=== PATIENT | female | born 1950 | race Caucasian/White ===

== ENCOUNTER 2022-01-08 16:47 | Inpatient (IN) | payer MEDICARE ==
[2022-01-08 17:27] LABS: #Basophils 0.1 10x3/uL (0.0-0.2); #Eosinphils 0.1 10x3/uL (0.0-0.5); #Monocytes 0.4 10x3/uL (0.0-1.1); #Neutrophils 3.9 10x3/uL (1.5-8.4); %Basophils 0.8 % (0.0-2.0); %Eosinophils 1.6 % (0.0-6.0); %Lymphocytes 29.4 % (18.0-47.0); %Monocytes 6.4 % (0.0-10.0); %Neutrophils 61.6 % (40.0-75.0); Hemoglobin 11.2 g/dL (12.0-15.5); Mean Corpuscular HGB CONC 34.5 g/dL (32.0-36.0); Mean Corpuscular Hemoglobin 31.7 pg (27.0-33.0); Mean Corpuscular Volume 92.1 fl (81.6-98.3); Mean Platelet Volume 10.5 fl (7.4-10.4); Platelet Count 229 10x3/uL (150-450); RBC Distribution Width 12.4 % (11.5-14.5); Red Blood Cell (RBC) Count 3.53 10x6/uL (3.90-5.03); White Blood Cell (WBC) Count 6.3 10x3/uL (3.5-10.5)
[2022-01-08 17:43] LABS: ALT (SGPT) 25 U/L (8-55); AST (SGOT) 25 U/L (5-34); Alkaline Phosphatase 73 U/L (40-110); Anion Gap 14 mmol/L (10-20); BUN (Urea Nitrogen) 16 mg/dL (9.8-20.1); Bilirubin, Total 0.7 mg/dL (0.2-1.2); Calc. Creatinine Clearance 0 mL/min (70-130); Calcium 9.3 mg/dL (7.8-10.44); Carbon Dioxide 25 mmol/L (23-31); Chloride 107 mmol/L (98-107); Estimated GFR 76; Globulin 2.1 g/dL (2.4-3.5); Glucose 92 mg/dL (80-115); Lipase 36 U/L (8-78); Potassium 4.4 mmol/L (3.5-5.1); Protein, Total 6.1 g/dL (5.8-8.1); Sodium 142 mmol/L (136-145)
[2022-01-08] MEDS ORDERED: Aspirin Chewable 81 MG TAB ONE (18:11)
[2022-01-08] MEDS ORDERED: Calcium Carbonate 500 MG ChewTAB PO PRN (21:50)
[2022-01-08] MEDS ORDERED: Zolpidem Tartrate 5 MG TAB PO PRN (21:50)
[2022-01-08] MEDS ORDERED: Ondansetron PF 4 MG/2 ML Vial IVP PRN (21:50)
[2022-01-08] MEDS ORDERED: Senokot S 8.6-50 MG TAB PO PRN (21:50)
[2022-01-08] MEDS ORDERED: HYDROcodone/Acetaminophen 5/325 mg Tablet PO PRN (21:50)
[2022-01-08] MEDS ORDERED: Acetaminophen 325 MG TAB PO PRN (21:50)
[2022-01-08] MEDS ORDERED: Nitroglycerin 0.4 MG TAB (25 Tab Bottle) SL PRN (21:51)
[2022-01-08] MEDS ORDERED: Lisinopril 10 MG TAB PO SCH (23:00)
[2022-01-08] MEDS ORDERED: Gabapentin 300 MG CAP PO SCH (23:00)
[2022-01-08] MEDS ORDERED: Atorvastatin Calcium 40 MG TAB PO SCH (23:00)
[2022-01-08 23:10] VITALS: BMI 27.8
[2022-01-09] MEDS: Levothyroxine Sodium 112 MCG TAB PO SCH (06:35)
[2022-01-09 07:18] LABS: Magnesium 1.9 mg/dL (1.6-2.6)
[2022-01-09] MEDS: Chlorthalidone 25 MG TAB PO SCH (08:52)
[2022-01-09] MEDS: Enoxaparin Sodium 40 MG/0.4 ML SYRINGE SC SCH (08:53)
[2022-01-09] MEDS: Escitalopram Oxalate 10 mg Tablet PO SCH (08:54)
[2022-01-09] MEDS: Metoprolol Tartrate 25 MG TAB PO SCH (20:01)
[2022-01-09] MEDS ORDERED: Lisinopril 10 MG TAB PO SCH (21:00)
[2022-01-09] MEDS ORDERED: Gabapentin 300 MG CAP PO SCH (21:00)
[2022-01-09] MEDS ORDERED: Atorvastatin Calcium 40 MG TAB PO SCH (21:00)
[2022-01-09] MEDS ORDERED: Aspirin 81 mg Enteric Coated Tablet PO SCH (21:00)
[2022-01-10] MEDS: Escitalopram Oxalate 10 mg Tablet PO SCH (05:59)
[2022-01-10] MEDS: Levothyroxine Sodium 112 MCG TAB PO SCH (06:00)
[2022-01-10 06:44] LABS: #Eosinphils 0.1 10x3/uL (0.0-0.5); #Monocytes 0.4 10x3/uL (0.0-1.1); #Neutrophils 2.2 10x3/uL (1.5-8.4); %Basophils 0.7 % (0.0-2.0); %Eosinophils 1.8 % (0.0-6.0); %Lymphocytes 38.4 % (18.0-47.0); %Monocytes 9.2 % (0.0-10.0); %Neutrophils 49.4 % (40.0-75.0); Hemoglobin 11.4 g/dL (12.0-15.5); Mean Corpuscular HGB CONC 35.3 g/dL (32.0-36.0); Mean Corpuscular Hemoglobin 32.6 pg (27.0-33.0); Mean Corpuscular Volume 92.3 fl (81.6-98.3); Mean Platelet Volume 10.9 fl (7.4-10.4); Platelet Count 215 10x3/uL (150-450); RBC Distribution Width 12.1 % (11.5-14.5); White Blood Cell (WBC) Count 4.4 10x3/uL (3.5-10.5)
[2022-01-10 07:34] LABS: Anion Gap 12 mmol/L (10-20); BUN (Urea Nitrogen) 14 mg/dL (9.8-20.1); Calc. Creatinine Clearance 75 mL/min (70-130); Calcium 9.5 mg/dL (7.8-10.44); Carbon Dioxide 25 mmol/L (23-31); Chloride 108 mmol/L (98-107); Estimated GFR 73; Glucose 113 mg/dL (80-115); Potassium 4.3 mmol/L (3.5-5.1); Sodium 141 mmol/L (136-145)
[2022-01-10] MEDS: Metoprolol Tartrate 25 MG TAB PO SCH (08:11)
[2022-01-10] MEDS: Enoxaparin Sodium 40 MG/0.4 ML SYRINGE SC SCH (08:11)
[2022-01-10] MEDS: Chlorthalidone 25 MG TAB PO SCH (08:14)
[2022-01-10 12:01] VITALS: BP 136/70; TEMP 98.1
== END 2022-01-10 12:30 | disposition home or self-care (01) | DRG 303 ==
LOC: CSHERS 16:47 → CSHTELE 21:50 → OBSVTOIN 01-09 14:32
PROVIDERS: ADMIT Student in an Organized Health Care Education/Training Program; ATTEND Hospitalist
DX: I25.118 Atherosclerotic heart disease of native coronary artery with other forms of angina pectoris (principal); Z20.822 Contact with and (suspected) exposure to COVID-19; I10 Essential (primary) hypertension; E78.5 Hyperlipidemia, unspecified; E03.9 Hypothyroidism, unspecified; F41.9 Anxiety disorder, unspecified; G89.4 Chronic pain syndrome; M54.16 Radiculopathy, lumbar region; Z95.5 Presence of coronary angioplasty implant and graft; Z79.890 Hormone replacement therapy; Z79.899 Other long term (current) drug therapy; Z88.2 Allergy status to sulfonamides; I25.2 Old myocardial infarction; Z79.82 Long term (current) use of aspirin; Z82.49 Family history of ischemic heart disease and other diseases of the circulatory system; Z83.3 Family history of diabetes mellitus; Z90.710 Acquired absence of both cervix and uterus
CPT/HCPCS: 36415; 71045; 80048; 80053; 83690; 83735; 84484; 85025; 93005; 93010; 93306; 94760; 96372; G0378; J1650; U0003; U0005